=== PATIENT | female | born 1985 | race Caucasian/White ===

== ENCOUNTER 2017-08-10 05:49 | Emergency (ER) | payer MEDICAID ==
[~2017-08-10] VITALS: Ht 152.4 cm; Wt 51.2 kg
[2017-08-10 05:55] VITALS: Ht 152.4 cm; Wt 51.2 kg
[2017-08-10 06:41] VITALS: BP 116/78
== END 2017-08-10 06:41 | disposition home or self-care (01) ==
LOC: ED 05:49
DX: L03.032 Cellulitis of left toe (principal)

== ENCOUNTER 2017-10-03 19:09 | Emergency (ER) | payer MEDICAID ==
[~2017-10-03] VITALS: Ht 152.4 cm; Wt 50.9 kg
[2017-10-03 21:01] VITALS: BP 104/69
== END 2017-10-03 21:01 | disposition home or self-care (01) ==
LOC: ED 19:09
DX: S29.011A Strain of muscle and tendon of front wall of thorax, initial encounter (principal); V49.9XXA Car occupant (driver) (passenger) injured in unspecified traffic accident, initial encounter; Y93.89 Activity, other specified; Y92.89 Other specified places as the place of occurrence of the external cause; Y99.8 Other external cause status

== ENCOUNTER 2018-09-13 18:07 | Emergency (ER) | payer MEDICAID ==
[~2018-09-13] VITALS: Ht 152.4 cm; Wt 51.3 kg
[2018-09-13 18:14] VITALS: Ht 152.4 cm; Wt 51.3 kg
[2018-09-13 18:43] LABS: BASOPHIL % 0.6 % (0-2); PLATELET COUNT 296 x10^3mcL (130-400); RED CELL DISTRIBUTION WIDTH 13.8 % (11.5-14.5)
[2018-09-13 18:44] LABS: microscopic required? NO
[2018-09-13 18:49] LABS: CALCIUM 8.9 mg/dL (8.5-10.1); CARBON DIOXIDE 27.9 mmol/L (21-32); CHLORIDE SERUM 105 mmol/L (98-107); CREATININE SERUM 0.5 mg/dL (0.6-1.0); GFR1 > 60 mL/min; GLUCOSE SERUM 92 mg/dL (74-106); POTASSIUM SERUM 3.5 mmol/L (3.5-5.1); SODIUM SERUM 137 mmol/L (136-145)
[2018-09-13 18:54] LABS: ALBUMIN 3.6 g/dL (3.4-5.0); ALKALINE PHOSPHATASE 70 U/L (46-116); ALT/SGPT 11 U/L (14-59); AST/SGOT 11 U/L (15-37); BILIRUBIN TOTAL 0.34 mg/dL (0.20-1.00); TOTAL PROTEIN, SERUM 7.2 g/dL (6.4-8.2)
[2018-09-13 19:11] LABS: urine erythrocyte NEGATIVE (NEGATIVE)
[2018-09-13 21:14] VITALS: BP 115/78
== END 2018-09-13 21:28 | disposition home or self-care (01) ==
LOC: ED 18:07
PROVIDERS: Emergency Medicine
DX: R10.31 Right lower quadrant pain (principal); R50.9 Fever, unspecified
CPT/HCPCS: 36415; J1885